=== PATIENT | female | born 1975 | race African-American/Black ===

== ENCOUNTER 2017-01-30 08:47 | Day surgery (SDC) | payer OTHER ==
[2017-01-29 14:29] VITALS: BMI 28.6
[2017-01-30 09:25] LABS: URINE APPEARANCE CLEAR; URINE BILIRUBIN NEGATIVE (NEGATIVE); URINE BLOOD 1+ (NEGATIVE); URINE COLOR LTYELLOW; URINE GLUCOSE (UA) NEGATIVE (NEGATIVE); URINE KETONE NEGATIVE (NEGATIVE); URINE LEUK ESTERASE NEGATIVE (NEGATIVE); URINE NITRITE NEGATIVE (NEGATIVE); URINE PROTEIN NEGATIVE (NEGATIVE); URINE UROBILINOGEN NEGATIVE mg/dL (0.2-1.0)
[2017-01-30] MEDS ORDERED: oxyCODONE HCL 5 MG TABLET PO PRN (09:38)
[2017-01-30] MEDS ORDERED: ONDANSETRON 4 MG/2 ML VIAL IVPUSH PRN (09:38)
[2017-01-30] MEDS ORDERED: PROMETHAZINE HCL 25 MG/1 ML VIAL IVPUSH PRN (09:38)
[2017-01-30 09:40] LABS: URINE BACTERIA RARE /hpf (NONE SEEN); URINE MUCUS RARE; URINE RBC 4 /hpf (0-3); URINE WBC <1 /hpf (3-5)
[2017-01-30] MEDS ORDERED: LIDOCAINE HCL 0.5% EPINEPHRINE 1:200,000 50 ML VIAL IJ ONE ×2 (09:45→10:21)
[2017-01-30] MEDS ORDERED: LACTATED RINGERS SOLUTION 1,000 ML IV SCH (09:45)
[2017-01-30] MEDS ORDERED: BUPIVACAINE HCL/PF 0.5% (5MG/ML) 10 ML VIAL ONE (09:49)
[2017-01-30] MEDS ORDERED: MIDAZOLAM HCL 2 MG/2 ML SINGLE DOSE VIAL ONE ×2 (09:49)
--- NOTE | 2017-01-30 10:01 | HP ---
[facility] - Chief Complaint Chief Complaint: left knee pain - Past Medical History Allergies/Adverse Reactions: Allergies Allergy/AdvReac Type Severity Reaction Status Date / Time No Known Allergies Allergy Verified 01/29/17 14:22 ...LMP: 01/20/17 - Current Medications Current Medications: Home Medications Medication Instructions Recorded Albuterol 0.083% Nebulizer Ana Paula 1 neb NEB Q6H 01/29/17 [Ventolin 0.083% Nebulizer Soln -] Albuterol Sulfate Inhaler - 1 - 2 inh PO Q4H PRN 01/29/17 [Ventolin HFA Inhaler -] Loratadine 10 mg PO DAILY 01/29/17 Oxycodone HCl/Acetaminophen 1 - 2 tab PO Q6H #30 tab MDD 8 01/30/17 [Percocet 5-325 mg Tablet -] [facility] Physical Exam - Physical Examination Vital Signs: Vital Signs Period Temp Pulse Resp BP Sys/Henley Pulse Ox Last 24 Hr 98.4 F 77 16 116/50 100 General Appearance: Well Nourished, Well Developed, Alert & Oriented x3 ENT: Clear Lung: Normal air movement Heart: Regular rate & rhythm Extremities: Other (left knee- + swelling, + ttp, decr rom, + mcmurrays, + apleys, nvi MRI + mt) Neurological: Intact, Alert, Oriented [facility] Impression/Plan - Impression/Plan Impression: left knee internal derangement Operative Procedure: left knee arthroscopy Date to be Performed: 01/30/17
[2017-01-30] MEDS ORDERED: PROPOFOL 20 ML ONE (10:09)
[2017-01-30] MEDS ORDERED: BUPIVACAINE HCL/PF (5 MG/ML) 30 ML VIAL IJ ONE (10:21)
[2017-01-30] MEDS ORDERED: DEXAMETHASONE SOD PHOSPHATE 4 MG/1 ML VIAL ONE (10:22)
[2017-01-30] MEDS ORDERED: LIDOCAINE HCL/PF 2% SDV 5ML VIAL ONE (10:22)
--- NOTE | 2017-01-30 10:43 | OP ---
Operative Note - Note: Operative Date: 01/30/17 ([facility]) Pre-Operative Diagnosis: left knee internal derangement Operation: left knee arthroscopy with PLM Post-Operative Diagnosis: Same as Pre-op Surgeon: Moustapha Taylor Anesthesiologist/TIME CLOCK REPAIRER: Marlene Vee MD Anesthesia: General, Local Specimens Removed: shavings Estimated Blood Loss (mls): 5 Operative Report Dictated: Yes
[2017-01-30 13:55] VITALS: BP 122/60; PULSE 70; TEMP 97.9
--- NOTE | 2017-01-31 08:47 | OP ---
DATE OF OPERATION: 01/30/2017 PREOPERATIVE DIAGNOSIS: Internal derangement, left knee. POSTOPERATIVE DIAGNOSIS: Internal derangement, left knee. PROCEDURES: Arthroscopy, left knee, with partial lateral meniscectomy. SURGICAL ATTENDING: Moustapha Taylor MD ANESTHESIA: General with LMA. CLOSURE: 4-0 nylon. COMPLICATIONS: None. CONDITION: To recovery room in stable condition. DESCRIPTION OF OPERATIVE PROCEDURE: The patient was taken to the operating room on January 30, 2017. General anesthesia with LMA was administered by the anesthesiologist. Left lower extremity was prepped and draped in the usual sterile fashion. The medial lateral infrapatellar portal sites were infiltrated with 1% Xylocaine with epinephrine. Both portals were made with a 15 blade blunt trocar. The scope was placed in the lateral infrapatellar portal and up into the suprapatellar pouch. A cocktail of 10 mL of 1% Xylocaine and 10 mL of 0.5% Marcaine and 20 mL of arthroscopic saline was placed through the trocar and allowed to inflate the knee. This was left in situ for a few minutes to allow it to percolate through the knee itself. The scope was placed through the trocar up into the suprapatellar pouch. Pouch was visualized to be clean. The medial and lateral gutters were visualized to be clean. The undersurface of the patella and trochlea were visualized to be intact. With valgus stress on the knee, the medial compartment was entered and medial meniscus was visualized, probed, and found to be intact. The medial femoral condyle was run and found to be intact as was the medial tibial plateau. At 90 degrees, the ACL was visualized, probed, and found to be intact. In the figure-four position, the lateral compartment was entered. The lateral meniscus was visualized, probed and found to have a complex tear of the anterior horn of the meniscus to its midsubstance. This was debrided back to stable meniscal tissues and balanced posteriorly using a meniscal diagnostic arthroscopic shaver. The meniscus was found to be intact. The lateral femoral condyle was run and found to be intact, as was the lateral tibial plateau. The knee was irrigated with copious amounts of irrigation. The portals were closed with 4-0 nylon. A sterile pressure dressing was placed over the knee. Patient was awakened from anesthesia and transferred to recovery room in stable condition. No complications. Estimated blood loss negligible. Alvaro WILKES/[id number]
--- NOTE | 2017-01-31 14:14 | PATH ---
Surgical Pathology Report Patient Name: CECILIO HUMPHRIES [facility]. Rec. #: [id number] /Age/Gender: 1975 (Age: 41) / F Account: [id number] Location: [facility] SURGICAL Taken: 01/30/2017 Received: 01/30/2017 Reported: 01/31/2017 Physicians: Moustapha Taylor M.D. Specimen(s) Received LEFT KNEE SHAVINGS Clinical History Left knee tear Final Diagnosis SOFT TISSUE, LEFT KNEE, ARTHROSCOPIC SHAVINGS: SYNOVIUM WITH LYMPHOPLASMACYTIC INFLAMMATION; FIBROCARTILAGE WITH MYXOHYALINE DEGENERATION (SEE COMMENT). Comment: The degree of lymphoplasmacytic inflammation is significant. Correlations with clinical history and serological findings are suggested to exclude inflammatory arthritis. Electronically Signed Issa Sosa M.D. Gross Description Received in formalin, labeled "left knee shavings" is a 4.5 x 4.3 x 0.6 cm aggregate of katz-yellow soft tissue fragments. A telephone sales representative portion is submitted in one cassette. 01/30/2017 [facility]01/30/2017
== END 2017-01-30 13:25 | disposition home or self-care (01) ==
LOC: JASU-SURG 08:47
PROVIDERS: ATTEND Orthopaedic Surgery
PROC: 0SBD4ZZ Excision of Left Knee Joint, Percutaneous Endoscopic Approach (ICD-10-PCS; principal; 2017-01-30 09:30)
DX: S83.272A Complex tear of lateral meniscus, current injury, left knee, initial encounter (principal); X58.XXXA Exposure to other specified factors, initial encounter; Y93.9 Activity, unspecified; Y92.9 Unspecified place or not applicable; Y99.9 Unspecified external cause status
CPT/HCPCS: 81003; 81015; 84703; 88304-TC; 94760